=== PATIENT | male | born 1945 | race Caucasian/White ===

== ENCOUNTER → 2024-04-01 | Outpatient (CLI) | payer OTHER, SELFPAY ==
[2024-04-01 15:45] LABS: Basophils # (Auto) 0.1 Thou/mm3 (0.0-0.2); Basophils % (Auto) 1 % (0-2.5); Eosinophils # (Auto) 0.2 Thou/mm3 (0.0-0.5); Eosinophils % (Auto) 2 % (0-10); Hemoglobin 13.7 g/dL (13.5-16.0); Immature Granulocytes % (Auto) 0 % (0-0); Immature Granulocytes Auto 0.02 Thou/mm3 (0.00-0.00); Lymphocytes # (Auto) 2.8 Thou/mm3 (1.0-4.8); Lymphocytes % (Auto) 31 % (10-50); Mean Corpuscular HGB Conc 34.3 g/dl (31.0-37.0); Mean Corpuscular Hemoglobin 29.4 pg (25.0-35.0); Mean Corpuscular Volume 86 fL (80-100); Monocytes # (Auto) 0.5 Thou/mm3 (0.0-0.8); Monocytes % (Auto) 6 % (0-12); Neutrophils # (Auto) 5.5 Thou/mm3 (1.8-7.7); Neutrophils % (Auto) 61 % (37-80); Nucleated Red Blood Cell % 0 /100 WBC (0); Platelet Count 225 Thou/mm3 (140-440); RDW Standard Deviation 43.8 fL (35.1-43.9); Red Blood Count 4.66 Miln/mm3 (4.50-5.90)
[2024-04-01 16:21] LABS: Alanine Aminotransferase 30 U/L (10-49); Albumin, Serum 4.5 gm/dL (3.4-4.8); Albumin/Globulin Ratio 1.6 (1.2-2.2); Alkaline Phosphatase 164 U/L (46-116); Anion Gap 11 (7-16); Aspartate Amino Transferase 17 U/L (0-34); BUN/Creatinine Ratio 19 Ratio (12-20); Bilirubin,Total 0.5 mg/dL (0.3-1.2); Blood Urea Nitrogen 29 mg/dL (9-23); Calcium 9.3 mg/dL (8.3-10.6); Calcium (Corrected) 9.3 mg/dL (8.5-10.1); Carbon Dioxide 24.7 mMol/L (20.0-31.0); Chloride 101 mMol/L (98-107); Creatinine (Component) 1.5 mg/dL (0.6-1.3); Globulin 2.8 gm/dL (2.3-3.5); Glucose 300 mg/dL (74-106); LDH (Lactate Dehydrogenase) 163 U/L (120-246); Osmolality,Calculated 290 (275-295); Potassium 3.9 mMol/L (3.4-5.1); Sodium 137 mMol/L (136-145); Total Protein 7.3 gm/dL (5.7-8.2); eGFR 48 See Note
== END | disposition home or self-care (01) ==
PROVIDERS: PCP Physician Assistant; Referring Provider Nurse Practitioner Family; Visit Provider Nurse Practitioner Family
DX: C43.4 Malignant melanoma of scalp and neck (principal)
CPT/HCPCS: 36415; 80053; 83615; 85025

== ENCOUNTER 2024-04-04 10:51 | Outpatient (RCR) | payer OTHER, SELFPAY | END 2024-04-29 23:59 | disposition home or self-care (01) | LOC: SCTC 10:51 | PROVIDERS: PCP Physician Assistant; Referring Provider Physician Assistant; Visit Provider Nurse Practitioner Family | DX: Z08 Encounter for follow-up examination after completed treatment for malignant neoplasm (principal); Z85.820 Personal history of malignant melanoma of skin | CPT/HCPCS: 99212; G0463 ==

== ENCOUNTER 2024-11-29 14:00 | Emergency (ER) | payer OTHER, SELFPAY ==
[2024-11-29 14:02] VITALS: BMI 22.3
[2024-11-29 14:19] VITALS: BP 124/60; PULSE 89; RESP 18; TEMP 37.1; O2SAT 96
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
== END 2024-11-29 17:25 | disposition home or self-care (01) ==
PROVIDERS: Emergency Provider Emergency Medicine
DX: S13.4XXA Sprain of ligaments of cervical spine, initial encounter (principal); S09.90XA Unspecified injury of head, initial encounter; V89.9XXA Person injured in unspecified vehicle accident, initial encounter
CPT/HCPCS: 70450; 72125; 99284

== ENCOUNTER → 2024-12-21 | Outpatient (CLI) | payer MEDICARE, SELFPAY ==
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
== END | disposition home or self-care (01) ==
PROVIDERS: Referring Provider Chiropractor; Visit Provider Chiropractor
DX: M50.323 Other cervical disc degeneration at C6-C7 level (principal)
CPT/HCPCS: 72050